=== PATIENT | male | born 1995 | race Caucasian/White ===

== ENCOUNTER 2017-02-08 20:19 | Emergency (ER) | payer OTHER, BC ==
[~2017-02-08] VITALS: Ht 177.8 cm; Wt 65.8 kg
[~2017-02-08 20:19] MED LIST: AMPH20TA2 PO; GENT3.5O18 OD
--- OUTSIDE RECORDS SUMMARY | 2017-02-08 20:24 | XMS REPORT ---
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 Name Role Phone TANNER BLACK Unavailable PROBLEMS Type Condition ICD9-CM Code [id number] Code Onset Dates Condition Status SNOMED Code Problem Mood disorder F39 Active [id number] Assessment Encounter for immunization Z23 Jan, Active [id number] ALLERGIES Unknown Allergies SOCIAL HISTORY No smoking Hx information available PLAN OF CARE VITAL SIGNS MEDICATIONS Unknown Medications RESULTS No Results PROCEDURES Procedure Date Ordered Related Diagnosis Body Site FLUARIX QUAD P-FREE 3 AND UP .50 2015Feb 01, 2016 SINGLE IMMUNIZATION ADMIN Feb 01, 2016 IMMUNIZATIONS Vaccine Route Administration Date Status FLUARIX QUAD P-FREE 3 AND UP .50 2015 IM Intramuscular Feb 01, 2016 Administered
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
[2017-02-08] MEDS ORDERED: HYDROcodone/APAP 5 MG/325 MG (LORTAB) TAB PO STA (21:43)
[2017-02-08] MEDS ORDERED: CYCLOBENZAPRINE 10 MG (FLEXERIL) TAB PO STA (21:43)
--- NOTE | 2017-02-08 22:07 | Diagnostic Imaging Report ---
PROCEDURE: CT lumbar spine without contrast. TECHNIQUE: Multiple contiguous axial images were obtained through the lumbar spine without the use of intravenous contrast. Sagittal and coronal reformations were then performed. INDICATION: Noncontrast CT scanning of the lumbar spine demonstrates no fracture or subluxation. Disc spaces are normal width. Adjacent soft tissues appear normal. IMPRESSION: Normal CT scan of the lumbar spine. Dictated by: Dictated on workstation # [id number]
[2017-02-08] MEDS ORDERED: CYCL10TA9 PO (22:11)
[2017-02-08] MEDS ORDERED: TRAM50TA2 PO (22:11)
[2017-02-08 22:16] VITALS: BP 136/88
== END 2017-02-08 22:16 | disposition home or self-care (01) ==
LOC: EDUNIT# 20:19 → ER 20:21
DX: S39.012A Strain of muscle, fascia and tendon of lower back, initial encounter (principal); F90.9 Attention-deficit hyperactivity disorder, unspecified type; F17.210 Nicotine dependence, cigarettes, uncomplicated; V49.50XA Passenger injured in collision with unspecified motor vehicles in traffic accident, initial encounter; Y92.488 Other paved roadways as the place of occurrence of the external cause
CPT/HCPCS: 72131; 99283

== ENCOUNTER 2017-04-02 17:24 | Emergency (ER) | payer BC ==
[~2017-04-02] VITALS: Ht 175.3 cm; Wt 68.0 kg
[~2017-04-02 17:24] MED LIST changes: +CYCL10TA9 PO; +TRAM50TA2 PO
--- OUTSIDE RECORDS SUMMARY | 2017-04-02 17:29 | XMS REPORT ---
Author Author MARGARITA Sims Organization [facility] Address [address] [place] [address] Care Team Providers Care Half Section Ironer Name Role Phone MARGARITA Sims Unavailable PROBLEMS Type Condition ICD9-CM Code [id number] Code Onset Dates Condition Status SNOMED Code Problem Adjustment disorder with depressed mood F43.21 Active 57953559 Problem Adjustment disorder with mixed anxiety and depressed mood F43.23 Active 92114203 Problem Mood disorder F39 Active 88833121 Problem Alcohol abuse F10.10 Active 02100822 Problem Severe episode of recurrent major depressive disorder, without psychotic features F33.2 Active 93927401 ALLERGIES No Known Allergies SOCIAL HISTORY Never Assessed PLAN OF CARE Activity Details Follow Up 6 Weeks with new provider Reason: VITAL SIGNS Height 69 in 2016-09-20 Weight 135 lbs 2016-09-20 Heart Rate 66 bpm 2016-09-20 BMI 19.93 kg/m2 2016-09-20 Blood pressure systolic 122 mmHg 2016-09-20 Blood pressure diastolic 62 mmHg 2016-09-20 MEDICATIONS Medication Instructions Dosage Frequency Start Date End Date Duration Status Citalopram Hydrobromide 20 MG Orally Once a day 0.5 tablet every am X 2 weeks then 1 tablet every am 24h September, 30 day(s) Active RESULTS No Results PROCEDURES No Known procedures IMMUNIZATIONS No Known Immunizations
--- OUTSIDE RECORDS SUMMARY | 2017-04-02 17:29 | XMS REPORT ---
Author Author JESE KEVIN [facility] Address [address] [place] [address] Care Team Providers Care Elevator Inspector Name Role Phone JESE KEVIN Unavailable PROBLEMS Type Condition ICD9-CM Code [id number] Code Onset Dates Condition Status SNOMED Code Problem Adjustment disorder with depressed mood F43.21 Active 58670176 Problem Adjustment disorder with mixed anxiety and depressed mood F43.23 Active 14558120 Problem Mood disorder F39 Active 62818527 Problem Alcohol abuse F10.10 Active 30274847 Problem Severe episode of recurrent major depressive disorder, without psychotic features F33.2 Active 29286799 ALLERGIES No Information SOCIAL HISTORY Never Assessed PLAN OF CARE Activity Details Follow Up 1 Week Reason:BH F/U VITAL SIGNS MEDICATIONS No Known Medications RESULTS No Results PROCEDURES Procedure Date Ordered Result Body Site Psych diagnostic evaluation, established patient September 18, 2016 IMMUNIZATIONS No Known Immunizations
--- OUTSIDE RECORDS SUMMARY | 2017-04-02 17:29 | XMS REPORT ---
Author Author JESE KEVIN [facility] Address [address] [place] [address] Care Team Providers Care Loom Operator Name Role Phone JESE KEVIN Unavailable PROBLEMS Type Condition ICD9-CM Code [id number] Code Onset Dates Condition Status SNOMED Code Problem Adjustment disorder with depressed mood F43.21 Active 49598140 Problem Adjustment disorder with mixed anxiety and depressed mood F43.23 Active 57312859 Problem Mood disorder F39 Active 34068972 Problem Alcohol abuse F10.10 Active 73528515 Problem Severe episode of recurrent major depressive disorder, without psychotic features F33.2 Active 46427362 ALLERGIES No Information SOCIAL HISTORY Never Assessed PLAN OF CARE Activity Details Follow Up 1 Week Reason:BH F/U VITAL SIGNS MEDICATIONS No Known Medications RESULTS No Results PROCEDURES Procedure Date Ordered Result Body Site Psychotherapy, patient &/family, 30 minutes, established patient September 24, 2016 IMMUNIZATIONS No Known Immunizations
[2017-04-02 17:45] LABS: BILIRUBIN,URINE NEGATIVE (NEGATIVE); KETONES,URINE NEGATIVE (NEGATIVE); LEUKOCYTE ESTERASE ,URINE 2+ (NEGATIVE); NITRITE,URINE NEGATIVE (NEGATIVE); PH,URINE 6 (5-9); PROTEIN,URINE NEGATIVE (NEGATIVE); UROBILINOGEN,URINE NORMAL (NORMAL)
--- NOTE | 2017-04-02 17:57 | ED GU-Male ---
General Chief Complaint: -Male Stated Complaint: BURNING WHILE URINATING Nursing Triage Note: ARRIVED VIA AMB TO ROOM 03. COMPLAINS OF BURNING UPON URINATION WITH A WHITE SUBSTANCE SEEPING OUT THAT STARTED ON SATURDAY. Source: patient Exam Limitations: no limitations History of Present Illness Time seen by provider: 17:54 Initial Comments To ER with reports of 3 days worth of burning upon urination, whitish discharge from the penis, redness around the tip of the penis. He did have unprotected sexual intercourse 3-4 days ago. He has never had an STD before that he is aware of. Timing/Duration: just prior to arrival Severity/Quality: moderate Activities at Onset: none Sexual Antoine History: less than 2 months ago Associated Symptoms: dysuria Allergies and Home Medications Allergies Coded Allergies: No Known Drug Allergies (Unverified , 02/03/09) Constitutional: see HPI EENTM: see HPI Respiratory: no symptoms reported Cardiovascular: no symptoms reported Genitourinary: see HPI, burning, discharge Musculoskeletal: no symptoms reported Skin: no symptoms reported Psychiatric/Neurological: No Symptoms Reported Endocrine: No Symptoms Reported Hematologic/Lymphatic: No Symptoms Reported Past Kglnqol-Viffmf-Lupdsd Hx Patient Social History Alcohol Use: Occasionally Uses Recreational Drug Use: Yes (POT) Smoking Status: Current Everyday Smoker Type Used: Cigarettes 2nd Hand Smoke Exposure: Yes Recent Foreign Travel: No Contact w/Someone Who Travel: No Recent Infectious Disease Expo: No Recent Hopitalizations: No Immunizations Up To Date Tetanus Booster (TDap): Unknown PED Vaccines UTD: Yes Date of Influenza Vaccine: Mar 26, 2012 Seasonal Allergies Seasonal Allergies: No Surgeries History of Surgeries: No Respiratory History of Respiratory Disorde: No Cardiovascular History of Cardiac Disorders: No Neurological History of Neurological Disord: Yes Neurological Disorders: Concussion Reproductive System Hx Reproductive Disorders: No Sexually Transmitted Disease: No HIV/AIDS: No Genitourinary History of Genitourinary Disor: No Gastrointestinal History of Gastrointestinal Di: No Musculoskeletal History of Musculoskeletal Dis: No Endocrine History of Endocrine Disorders: No HEENT History of HEENT Disorders: No Cancer History of Cancer: No Psychosocial History of Psychiatric Problem: Yes Behavioral Health Disorders: ADD/ADHD Integumentary History of Skin or Integumenta: No Blood Transfusions History of Blood Disorders: No Adverse Reaction to a Blood Tr: No Family Medical History Significant Family History: No Pertinent Family Hx Physical Exam Vital Signs Vital Sign - Last 12Hours 04/02/17 17:32 Temp 100.3 Pulse 77 B/P (MAP) 144/79 Pulse Ox 99 Capillary Refill : Less Than 3 Seconds General Appearance: WD/WN, no apparent distress HEENT: PERRL/EOMI, normal ENT inspection Neck: non-tender, full range of motion Respiratory: no respiratory distress, no accessory muscle use Male: normal genitalia (there is erythema and discharge around the urethral meatus. Otherwise are no lesions to penis. No testicular tenderness) Neurologic/Psychiatric: alert, normal mood/affect, oriented x 3 Skin: normal color, warm/dry Progress/Results/Core Measures Suspected Sepsis Recent Fever Within 48 Hours: No Infection Criteria Present: Suspected New Infection New/Unexplained Altered Menta: No Sepsis Screen: No Definite Risk Sepsis Diagnosis: SIRS Temperature:100.3 Pulse: 77 Respiratory Rate: Blood Pressure 144 /79 Mean: 100 Results/Orders Lab Results Laboratory Tests Test 04/02/17 17:36 Range/Units My Orders Orders - FATUMA RAM APRN Andrea Dna Urine Test (04/02/17 17:33) Chlamydia Dna (04/02/17 17:33) Ceftriaxone Injection (Rocephin Injectio (04/02/17 18:00) Lidocaine 1% Injection (Xylocaine 1% Inj (04/02/17 18:00) Azithromycin Tablet (Zithromax Tablet) (04/02/17 18:00) Vital Signs/I&O Vital Sign - Last 12Hours 04/02/17 17:32 Temp 100.3 Pulse 77 B/P (MAP) 144/79 Pulse Ox 99 Capillary Refill : Less Than 3 Seconds Blood Pressure Mean: 100 Departure Impression Impression: Primary Impression: Urethritis Additional Impression: Sexually transmitted disease Disposition: 01 HOME, SELF-CARE Condition: Stable Departure-Patient Inst. Decision time for Depature: 17:56 Referrals: NO,LOCAL PHYSICIAN (PCP/Family) Primary Care Physician Patient Instructions: Sexually-Transmitted Diseases (DC), Gonorrhea (DC), Chlamydia (DC) Add. Discharge Instructions: 1. Your sexual partner should be tested as well. Always wear protection when engaging in sexual activity 2. If your symptoms persist into next week he should be rechecked by her physician if they worsen he should return to the emergency room. Expect improvement in 2-3 days. All discharge instructions reviewed with patient and/or family. Voiced understanding. FATUMA RAM BOARD OF EDUCATION SECRETARY Apr 02, 2017 17:57
[2017-04-02 18:00] LABS: SQUAMOUS EPITHELIAL CELL,UR RARE /HPF; WBC,URINE 25-50 /HPF
[2017-04-02] MEDS ORDERED: cefTRIAXone 1 GM (ROCEPHIN) VIAL IM ONE (18:00)
[2017-04-02] MEDS ORDERED: LIDOCAINE 1% INJ 20 ML (XYLOCAINE) VIAL INJ ONE (18:00)
[2017-04-02] MEDS ORDERED: AZITHROMYCIN 250 MG TAB (ZITHROMAX) PO SCH (18:00)
[2017-04-02 18:32] VITALS: BP 144/79
[2017-04-04 15:45] LABS: NEISSERIA GONORRHEA DNA URINE Detected (Not Detected)
== END 2017-04-02 18:32 | disposition home or self-care (01) ==
LOC: EDUNIT# 17:24 → ER 17:25
DX: N34.1 Nonspecific urethritis (principal); A64 Unspecified sexually transmitted disease; F90.9 Attention-deficit hyperactivity disorder, unspecified type; F12.10 Cannabis abuse, uncomplicated; F17.210 Nicotine dependence, cigarettes, uncomplicated
CPT/HCPCS: 36415; 81000; 87088; 87491; 87591; 99284

== ENCOUNTER 2017-05-06 00:18 | Emergency (ER) | payer BC ==
[~2017-05-06] VITALS: Ht 172.7 cm; Wt 72.6 kg
[2017-05-06] MEDS ORDERED: NS IV 1000 ML 1,000 ML IV ONE (00:30)
[2017-05-06 00:37] LABS: BASOPHILS # (AUTO) 0.1 10^3/uL (0.0-0.1); BASOPHILS % (AUTO) 1 % (0-10); EOSINOPHILS % (AUTO) 0 % (0-10); HEMATOCRIT 44 % (40-54); LYMPHOCYTES % (AUTO) 19 % (12-44); MEAN CORPUSCULAR HEMOGLOBIN 31 PG (25-34); MEAN CORPUSCULAR HGB CONC 34 G/DL (32-36); MEAN CORPUSCULAR VOLUME 91 FL (80-99); MEAN PLATELET VOLUME 8.5 FL (7.4-10.4); MONOCYTES # (AUTO) 0.7 X 10^3 (0.0-1.0); MONOCYTES % (AUTO) 7 % (0-12); NEUTROPHILS % (AUTO) 74 % (42-75); PLATELET COUNT 369 10^3/uL (130-400); RED BLOOD COUNT 4.84 10^6/uL (4.35-5.85); RED CELL DISTRIBUTION WIDTH 11.9 % (10.0-14.5); WHITE BLOOD COUNT 10.8 10^3/uL (4.3-11.0)
--- NOTE | 2017-05-06 00:38 | ED General ---
General Chief Complaint: Substance Abuse Stated Complaint: ETOH Source of Information: Patient Exam Limitations: Intoxication History of Present Illness Time Seen by Provider: 00:15 Initial Comments Here by EMS with report of being found outside on the porch of a house that apparently may have been his neighbors house. He was knocking on the door and trying to get in. Police and EMS were called. He essentially passed out on the porch and police put him in their car. EMS found him to be cold and not very responsive smelling of EtOH. On arrival here, he did wake up and did admit to drinking but he did not talk very much. He was noted to have abrasions on his arms and back as well as his anterior knees. Patient noted to have vomit on his clothes. Timing/Duration: 1 Hour Severity: Moderate, Severe Associated Systoms: Nausea/Vomiting Allergies and Home Medications Allergies Coded Allergies: No Known Drug Allergies (Unverified , 02/03/09) Constitutional: see HPI Other Unable to complete review of systems due to altered mental status/intoxication Past Nqmmpud-Pgxoaz-Cwzuzh Hx Patient Social History Alcohol Use: Occasionally Uses Recreational Drug Use: No Smoking Status: Current Everyday Smoker Type Used: Cigarettes 2nd Hand Smoke Exposure: Yes Recent Hopitalizations: No Physical Abuse: No Sexual Abuse: No Mistreated: No Fear: No Immunizations Up To Date Tetanus Booster (TDap): Unknown PED Vaccines UTD: Yes Date of Influenza Vaccine: Mar 26, 2012 Seasonal Allergies Seasonal Allergies: No Surgeries History of Surgeries: No Respiratory History of Respiratory Disorde: No Cardiovascular History of Cardiac Disorders: No Neurological History of Neurological Disord: Yes Neurological Disorders: Concussion Reproductive System Hx Reproductive Disorders: No Sexually Transmitted Disease: No HIV/AIDS: No Genitourinary History of Genitourinary Disor: No Gastrointestinal History of Gastrointestinal Di: No Musculoskeletal History of Musculoskeletal Dis: No Endocrine History of Endocrine Disorders: No HEENT History of HEENT Disorders: No Cancer History of Cancer: No Psychosocial History of Psychiatric Problem: Yes Behavioral Health Disorders: ADD/ADHD Suicide Risk Score: 0 Integumentary History of Skin or Integumenta: No Blood Transfusions History of Blood Disorders: No Adverse Reaction to a Blood Tr: No Reviewed Nursing Assessment Reviewed/Agree w Nursing PMH: Yes Family Medical History Significant Family History: No Pertinent Family Hx Physical Exam Vital Signs Vital Sign - Last 12Hours 05/06/17 00:18 Temp 93.0 Pulse 62 Resp 16 B/P (MAP) 134/82 (99) Pulse Ox 99 O2 Delivery Room Air Capillary Refill : General Appearance: No Apparent Distress, WD/WN HEENT: PERRL/EOMI, Pharynx Normal Neck: Normal Inspection, Non Tender, Supple Respiratory: Lungs Clear, Normal Breath Sounds Cardiovascular: Regular Rate, Rhythm, No Murmur Gastrointestinal: Non Tender, Soft Back: No CVA Tenderness, No Vertebral Tenderness, Other (abrasions to the mid back area approximately 4 x 12 cm and very superficial without deformity or step -off) Extremity: Normal Range of Motion, Other (abrasions to the elbows and knees bilateral that are superficial and circular or elongated.) Neurologic/Psychiatric: Other (wakes with strong verbal but does not answer questions. Does follow simple commands. Moves all 4 extremities spontaneously. ) Skin: Warm/Dry, Cool, Other (abrasions as noted above) Progress/Results/Core Measures Suspected Sepsis SIRS Temperature: Pulse: Respiratory Rate: Laboratory Tests 05/06/17 00:25: White Blood Count 10.8 Blood Pressure / Mean: Laboratory Tests 05/06/17 00:25: Creatinine 0.76, Platelet Count 369, Total Bilirubin 0.3 Results/Orders Lab Results Laboratory Tests Test 05/06/17 00:25 Range/Units White Blood Count 10.8 4.3-11.0 10^3/uL Red Blood Count 4.84 4.35-5.85 10^6/uL Hemoglobin 15.0 13.3-17.7 G/DL Hematocrit 44 40-54 % Mean Corpuscular Volume 91 80-99 FL Mean Corpuscular Hemoglobin 31 25-34 PG Mean Corpuscular Hemoglobin Concent 34 32-36 G/DL Red Cell Distribution Width 11.9 10.0-14.5 % Platelet Count 369 130-400 10^3/uL Mean Platelet Volume 8.5 7.4-10.4 FL Neutrophils (%) (Auto) 74 42-75 % Lymphocytes (%) (Auto) 19 12-44 % Monocytes (%) (Auto) 7 0-12 % Eosinophils (%) (Auto) 0 0-10 % Basophils (%) (Auto) 1 0-10 % Neutrophils # (Auto) 8.0 H 1.8-7.8 X 10^3 Lymphocytes # (Auto) 2.0 1.0-4.0 X 10^3 Monocytes # (Auto) 0.7 0.0-1.0 X 10^3 Eosinophils # (Auto) 0.0 0.0-0.3 10^3/uL Basophils # (Auto) 0.1 0.0-0.1 10^3/uL Sodium Level 143 135-145 MMOL/L Potassium Level 3.5 L 3.6-5.0 MMOL/L Chloride Level 104 98-107 MMOL/L Carbon Dioxide Level 23 21-32 MMOL/L Anion Gap 16 H 5-14 MMOL/L Blood Urea Nitrogen 9 7-18 MG/DL Creatinine 0.76 0.60-1.30 MG/DL Estimat Glomerular Filtration Rate > 60 BUN/Creatinine Ratio 12 Glucose Level 108 H 70-105 MG/DL Calcium Level 9.0 8.5-10.1 MG/DL Total Bilirubin 0.3 0.1-1.0 MG/DL Aspartate Amino Transf (AST/SGOT) 16 5-34 U/L Alanine Aminotransferase (ALT/SGPT) 15 0-55 U/L Alkaline Phosphatase 92 40-136 U/L Total Protein 8.0 6.4-8.2 GM/DL Albumin 4.4 3.2-4.5 GM/DL Serum Alcohol 273 H <10 MG/DL My Orders Orders - RUPALI CHAUHAN MD Alcohol (05/06/17 00:30) Cbc With Automated Diff (05/06/17 00:30) Comprehensive Metabolic Panel (05/06/17 00:30) Drug Screen Stat (Urine) (05/06/17 00:30) Ua Culture If Indicated (05/06/17 00:30) Ct Head Wo (05/06/17 00:30) Saline Lock/Iv-Start (05/06/17 00:30) Ns Iv 1000 Ml (Sodium Chloride 0.9%) (05/06/17 00:30) Medications Given in ED Current Medications Medications Dose Ordered Sig/Damion Route Start Time Stop Time Status Last Admin Dose Admin Sodium Chloride 1,000 ml @ 0 mls/hr Q0M ONCE IV 05/06/17 00:30 05/06/17 00:31 DC 05/06/17 00:25 1,000 MLS/HR Vital Signs/I&O Vital Sign - Last 12Hours 05/06/17 00:18 Temp 93.0 Pulse 62 Resp 16 B/P (MAP) 134/82 (99) Pulse Ox 99 O2 Delivery Room Air Capillary Refill : Progress Note : Progress Note Seen and evaluated. IV by EMS with 1 L of warm normal saline running. Second IV with 1 L normal saline initiated by ER staff. Warm blankets applied. Patient's initial temperature was 93F tympanic. We will closely monitor this for improvement with fluids and warm blankets. Monitor patient. 0315: CT complete and no acute findings. Patient was able to get out of bed and was reportedly aggressive with nurse and tech. Law enforcement was called. Patient wakes and walks without difficulty. Patient is medically cleared for incarceration. Temperature has improved. No other significant findings. Discharged with law enforcement. Diagnostic Imaging Diagonstic Imaging: CT Plain Films/CT/US/NM/MRI: head Comments No acute intracranial pathology. Opacified maxillary sinuses. Mucosal thickening involving the remaining paranasal sinuses. Departure Impression Impression: Primary Impression: Alcohol abuse Additional Impressions: Abrasion of upper extremity Qualified Codes: S40.819A - Abrasion of unspecified upper arm, initial encounter Abrasion of lower extremity Qualified Codes: S80.819A - Abrasion, unspecified lower leg, initial encounter Abrasion of back Qualified Codes: S20.419A - Abrasion of unspecified back wall of thorax, initial encounter Disposition: 01 HOME, SELF-CARE Condition: Improved Departure-Patient Inst. Decision time for Depature: 03:20 Referrals: NO,LOCAL PHYSICIAN (PCP/Family) Primary Care Physician Patient Instructions: ALCOHOL AND SUBSTANCE ABUSE, Skin Abrasions (DC) Add. Discharge Instructions: All discharge instructions reviewed with patient and/or family. Voiced understanding. Medically cleared for incarceration. Use antibiotic ointment over abrasions. Drink plenty of fluids. Avoid alcohol. Return for other concerns as needed. RUPALI CHAUHAN MD May 06, 2017 00:37
[2017-05-06 00:55] LABS: ALANINE AMINOTRANSFERASE 15 U/L (0-55); ALBUMIN 4.4 GM/DL (3.2-4.5); ALKALINE PHOSPHATASE 92 U/L (40-136); BILIRUBIN,TOTAL 0.3 MG/DL (0.1-1.0); BUN/CREATININE RATIO 12; CARBON DIOXIDE 23 MMOL/L (21-32); CHLORIDE 104 MMOL/L (98-107); CREATININE SERUM 0.76 MG/DL (0.60-1.30); GFR ESTIMATED > 60; GLUCOSE 108 MG/DL (70-105); POTASSIUM 3.5 MMOL/L (3.6-5.0); SODIUM 143 MMOL/L (135-145)
[2017-05-06 03:26] VITALS: BP 109/44
--- NOTE | 2017-05-06 07:29 | Diagnostic Imaging Report ---
PROCEDURE: CT head without contrast. TECHNIQUE: Multiple contiguous axial images were obtained through the brain without the use of intravenous contrast. INDICATION: Altered level of consciousness and altered mental status. Alcohol intoxication. FINDINGS: There is no CT demonstration of intracranial hemorrhage. There is no abnormal extra-axial fluid collection. There is no mass effect or shift. Payan-white differentiation is preserved. Ventricles are appropriate in size and configuration. Basilar cisterns are patent. The mastoid air cells are clear. There is severe mucosal thickening within the paranasal sinuses. The orbital contents are unremarkable. There is no calvarial abnormality. IMPRESSION: 1. No CT evidence of an acute intracranial abnormality 2. Severe mucosal thickening within the paranasal sinuses. Dictated by: Dictated on workstation # [id number]
== END 2017-05-06 03:26 | disposition home or self-care (01) ==
LOC: EDUNIT# 00:20 → ER 00:21
DX: S80.211A Abrasion, right knee, initial encounter (principal); S80.212A Abrasion, left knee, initial encounter; S30.810A Abrasion of lower back and pelvis, initial encounter; S50.311A Abrasion of right elbow, initial encounter; S50.312A Abrasion of left elbow, initial encounter; F10.10 Alcohol abuse, uncomplicated; F17.210 Nicotine dependence, cigarettes, uncomplicated; F90.9 Attention-deficit hyperactivity disorder, unspecified type; W17.89XA Other fall from one level to another, initial encounter
CPT/HCPCS: 36415; 70450; 80053; 80320; 85025

== ENCOUNTER 2022-10-06 23:37 | Emergency (ER) | payer SELFPAY ==
[~2022-10-06 23:37] MED LIST changes: +CYCL10TA25 PO; -CYCL10TA9 PO; -TRAM50TA2 PO; +TRM50T PO
--- NOTE | 2022-10-06 23:55 | ED General ---
General Stated Complaint: STD TESTS Source of Information: Patient Exam Limitations: No Limitations History of Present Illness Date Seen by Provider: Oct 06, 2022 Time Seen by Provider: 23:49 Initial Comments 27-year-old male presents for STD screening. He is asymptomatic. He states his "soon-to-be ex-" just found out she has chlamydia. All other systems reviewed and negative except documented per HPI. Voice recognition software was used to help create this chart Allergies and Home Medications Allergies Coded Allergies: No Known Drug Allergies (Unverified , 02/03/09) Patient Home Medication List Home Medication List Reviewed: Yes Review of Systems Review of Systems Constitutional: see HPI Past Zrhxghz-Slmaov-Oruvyi Hx Patient Social History Tobacco Use?: No Use of E-Cig and/or Vaping dev: No Substance use?: No Immunizations Up To Date Tetanus Booster (TDap): Unknown PED Vaccines UTD: Yes Seasonal Allergies Seasonal Allergies: No Past Medical History Surgeries: No Respiratory: No Cardiac: No Neurological: Yes Concussion Reproductive Disorders: No Sexually Transmitted Disease: No HIV/AIDS: No Genitourinary: No Gastrointestinal: No Musculoskeletal: No Endocrine: No HEENT: No Cancer: No Psychosocial: Yes ADD/ADHD Integumentary: No Blood Disorders: No Adverse Reaction/Blood Tranf: No Family Medical History No Pertinent Family Hx Physical Exam Vital Signs Capillary Refill : Height, Weight, BMI Height: 5'8.00" Weight: 160lbs. 0.0oz. [id number]; 20.09 BMI Method:Estimated General Appearance: No Apparent Distress, WD/WN Progress/Results/Core Measures Suspected Sepsis SIRS Temperature: Pulse: Respiratory Rate: Blood Pressure / Mean: Results/Orders Vital Signs/I&O Capillary Refill : Departure Communication (Admissions) Patient was irritated with questioning about needed STD testing and leaves without being examined or testing. Impression Primary Impression: Encounter for medical screening examination Disposition: AGAINST MEDICAL ADVICE Condition: Against Medical Advice Departure-Patient Inst. Referrals: NO,LOCAL PHYSICIAN (PCP/Family) Primary Care Physician MARYCRUZ CHÁVEZ DO Oct 06, 2022 23:55
== END 2022-10-06 23:54 | disposition left against medical advice (07) ==
LOC: EDUNIT# 23:37 → ER 23:41
DX: Z11.3 Encounter for screening for infections with a predominantly sexual mode of transmission (principal)